=== PATIENT | male | born 1965 | race African-American/Black ===

== ENCOUNTER 2017-03-21 11:56 | Inpatient (IN) | payer OTHER ==
[2017-03-21 12:32] VITALS: BMI 20.7
--- NOTE | 2017-03-21 15:30 | HP ---
CIWA Score - CIWA Score Nausea/Vomitin-No Nausea/No Vomiting Muscle Tremors: 4-Moderate,w/Arms Extend Anxiety: 4-Mod. Anxious/Guarded Agitation: 4-Moderately Restless Paroxysmal Sweats: 3 Orientation: 0-Oriented Tacttile Disturbances: 0-None Auditory Disturbances: 0-None Visual Disturbances: 0-None Headache: 1-Very Mild CIWA-Ar Total Score: 16 Admission ROS BHS - HPI Chief Complaint: I am here to detox. Allergies/Adverse Reactions: Allergies Allergy/AdvReac Type Severity Reaction Status Date / Time Sulfa (Sulfonamide Allergy Severe Difficulty Verified 03/21/17 14:41 Antibiotics) Breathing History of Present Illness: pt is a 51yr old male with a history of alcohol and cocaine dependence seeking detox for treatment. Exam Limitations: Physical Impairment (right sided weakness due to stroke) - Ebola screening Have you traveled outside of the country in the last 21 days: No Have you had contact with anyone from an Ebola affected area: No Have you been sick,other than usual withdrawal symptoms: No Do you have a fever: No - Review of Systems Constitutional: Chills, Diaphoresis, Weakness (right sided weakness) EENT: reports: Nose Congestion, Other (right eye blindness) Respiratory: reports: Cough Cardiac: reports: No Symptoms Reported GI: reports: Indigestion : reports: Incontinence Musculoskeletal: reports: Muscle Pain Integumentary: reports: Rash (diaper rash) Neuro: reports: No Symptoms reported Endocrine: reports: No Symptoms Reported Hematology: reports: No Symptoms Reported Psychiatric: reports: Judgement Intact, Mood/Affect Appropiate, Agitated, Anxious Other Systems: Reviewed and Negative Patient History - Patient Medical History Hx Anemia: No Hx Asthma: No Hx Chronic Obstructive Pulmonary Disease (COPD): No Hx Cancer: No Hx Cardiac Disorders: No Hx Congestive Heart Failure: No Hx Hypertension: Yes (on meds.) Hx Hypercholesterolemia: Yes Hx Pacemaker: No HX Cerebrovascular Accident: Yes (12yrs ago right sided residual) Hx Seizures: No Hx Dementia: No Hx Diabetes: No Hx Gastrointestinal Disorders: No Hx Liver Disease: No Hx Genitourinary Disorders: No Hx Sexually Transmitted Disorders: Yes (tx for syphillis and gonnorhea) Hx Renal Disease (ESRD): No Hx Thyroid Disease: No Hx Human Immunodeficiency Virus (HIV): Yes (on medication but didnt bring them ) Hx Hepatitis C: No Hx Depression: Yes Hx Suicide Attempt: No Hx Bipolar Disorder: No Hx Schizophrenia: No Other Medical History: insomnia - Patient Surgical History Past Surgical History: No - PPD History Previous Implant?: Yes Documented Results: Positive w/o proof Implanted On Prior [facility] Admission?: No PPD to be Administered?: No - Reproductive History Patient : No - Smoking Cessation Smoking history: Current every day smoker Have you smoked in the past 12 months: Yes Aproximately how many cigarettes per day: 10 Hx Chewing Tobacco Use: No Initiated information on smoking cessation: Yes 'Breaking Loose' booklet given: 03/21/17 - Substance & Tx. History Hx Alcohol Use: Yes Hx Substance Use: Yes Substance Use Type: Alcohol, Cocaine Hx Substance Use Treatment: Yes - Substances Abused Alcohol Route: Oral Frequency: Daily Amount used: 3 22 oz beers Age of first use: 28 Date of Last Use: 03/21/17 Crack Route: Smoking Frequency: Daily Amount used: $30-40 Age of first use: 27 Date of Last Use: 03/14/17 Family Disease History - Family Disease History Family History: Denies Admission Physical Exam S - Vital Signs Vital Signs: Vital Signs - 24 hr 03/21/17 12:26 Temperature 95.9 F L Pulse Rate 94 H Respiratory 19 Rate Blood Pressure 128/68 - Physical General Appearance: Yes: Moderate Distress, Tremorous, Irritable, Sweating, Anxious HEENTM: Yes: Normal Voice Respiratory: Yes: Lungs Clear Neck: Yes: No masses,lesions,Nodules Breast: Yes: Within Normal Limits Cardiology: Yes: Regular Rhythm, Regular Rate, S1, S2 Abdominal: Yes: Normal Bowel Sounds, Non Tender Genitourinary: Yes: Within Normal Limits Back: Yes: Normal Inspection Musculoskeletal: Yes: full range of Motion Extremities: Yes: Normal Capillary Refill, Tremors Neurological: Yes: Fully Oriented, Normal Response Integumentary: Yes: Normal Color Lymphatic: Yes: Within Normal Limits - Diagnostic (1) Alcohol dependence with uncomplicated withdrawal Current Visit: Yes Status: Chronic (2) Nicotine dependence Current Visit: Yes Status: Chronic Qualifiers: Nicotine product type: cigarettes Substance use status: uncomplicated Qualified Code(s): F17.210 - Nicotine dependence, cigarettes, uncomplicated (3) CVA, old, hemiparesis Current Visit: No Status: Chronic (4) Blind right eye Current Visit: Yes Status: Chronic (5) Rash Current Visit: Yes Status: Chronic (6) HIV (human immunodeficiency virus infection) Current Visit: Yes Status: Chronic Comment: pt did not bring his antivirial medication (7) PPD positive, treated Current Visit: Yes Status: Inactive Cleared for Admission [facility] - Detox or Rehab [facility] Level of Care: Medically Managed Detox Regimen/Protocol: Librium [facility] Breath Alcohol Content Breath Alcohol Content: 0 Urine Drug Screen - Results Drug Screen Negative: No Urine Drug Screen Results: TCA-Tricyclic Antidepress
[2017-03-21] MEDS ORDERED: P-EPHED 60MG/TRIPROLIDI 2.5MG TABLET PO PRN (15:47)
[2017-03-21] MEDS ORDERED: MAGNESIUM HYDROX 2400MG/30ML ORAL SUSPENSION 30 ML CUP PO PRN (15:47)
[2017-03-21] MEDS ORDERED: MENTHOL/PHENOL 1 EACH UD MM PRN (15:47)
[2017-03-21] MEDS ORDERED: ACETAMINOPHEN 325 MG TABLET (FP) PO PRN (15:47)
[2017-03-21] MEDS ORDERED: hydrOXYzine PAMOATE 50 MG CAPSULE (FP) PO PRN (15:47)
[2017-03-21] MEDS ORDERED: chlordiazePOXIDE HCL 25 MG CAPSULE PO PRN (15:47)
[2017-03-21] MEDS ORDERED: LOPERAMIDE HCL 2 MG CAPSULE PO PRN (15:47)
[2017-03-21] MEDS ORDERED: MAG HYDROX/AL HYDROX/SIMETH 30 ML UNIT-DOSE CUP PO PRN (15:47)
[2017-03-21] MEDS ORDERED: IBUPROFEN 400 MG TABLET (FP) PO PRN (15:47)
[2017-03-21] MEDS ORDERED: MAGNESIUM CITRATE 300 ML BOTTLE PO PRN (15:47)
[2017-03-21] MEDS ORDERED: guaiFENesin/D-METHORPHAN HB 10 ML UNIT-DOSE CUPS PO PRN (15:47)
[2017-03-21] MEDS ORDERED: chlordiazePOXIDE HCL 25 MG CAPSULE PO ONE (17:00)
[2017-03-21] MEDS: chlordiazePOXIDE HCL 25 MG CAPSULE PO SCH ×2 (17:32→22:56)
[2017-03-21] MEDS: INSULIN SLIDING SCALE (NOVOLOG) 1 VIAL SQ SCH (21:47)
[2017-03-21] MEDS ORDERED: INSULIN (NOVOLOG) ASPART 100 UNITS/ML 10ML VIAL ONE (21:47)
[2017-03-21] MEDS: NYSTATIN 100,000 UNIT/GM TOPICAL CREAM 15 GM TUBE TP SCH (22:01)
[2017-03-21] MEDS: THIAMINE HCL 100 MG TABLET (FP) PO SCH (22:56)
[2017-03-21] MEDS: diphenhydrAMINE HCL 50 MG CAPSULE PO PRN (22:56)
[2017-03-21] MEDS: ATORVASTATIN CA 10 MG TABLET (FP) PO SCH (22:56)
[2017-03-21 23:03] LABS: URINE APPEARANCE CLEAR; URINE BILIRUBIN NEGATIVE (NEGATIVE); URINE BLOOD NEGATIVE (NEGATIVE); URINE COLOR STRAW; URINE GLUCOSE (UA) 3+ (NEGATIVE); URINE KETONE 1+ (NEGATIVE); URINE LEUK ESTERASE NEGATIVE (NEGATIVE); URINE NITRITE NEGATIVE (NEGATIVE); URINE PROTEIN NEGATIVE (NEGATIVE); URINE UROBILINOGEN NEGATIVE E.U./dl (0.2-1.0)
--- NOTE | 2017-03-21 23:27 | PN ---
BHS Progress Note Note: GLUCOMETER READ "HI"; 12 UNITS OF NOVOLOG ADMINISTERED. BS RECHECKED AFTER AN HOUR BUT IT WAS STILL "HI". CLIENT TRANSFERRED TO [facility] ER FOR FURTHER EVALUATION.
[2017-03-22] MEDS: NIFEdipine E.R. 90 MG TABLET (FP) PO SCH (10:40)
[2017-03-22] MEDS: PRENATAL VITAMINS W/ FOLIC ACID TABLET (FP) PO SCH (10:40)
[2017-03-22] MEDS: NYSTATIN 100,000 UNIT/GM TOPICAL CREAM 15 GM TUBE TP SCH ×2 (10:41→22:32)
[2017-03-22] MEDS: chlordiazePOXIDE HCL 25 MG CAPSULE PO SCH ×3 (10:41→22:12)
[2017-03-22] MEDS: NICOTINE 21 MG/24 HOURS TOPICAL PATCH TD SCH (10:41)
[2017-03-22] MEDS: INSULIN SLIDING SCALE (NOVOLOG) 1 VIAL SQ SCH ×4 (10:41→22:13)
--- NOTE | 2017-03-22 10:53 | CONSULT ---
[facility] Psychiatric Consult - Data Date of interview: 03/22/17 Admission source: [facility] Identifying data: First admission to [facility] for this 51 y/o AA male seeking detox treatment for alcohol and cocaine dependence.Patient is single,a father of two,domiciled,disabled (CVA in 2003) and supported on SSI benefits. Substance Abuse History: - Smoking Cessation. Smoking history: Current every day smoker. Have you smoked in the past 12 months: Yes. Aproximately how many cigarettes per day: 10. Hx Chewing Tobacco Use: No. Initiated information on smoking cessation: Yes. 'Breaking Loose' booklet given: 03/21/17. - Substance & Tx. History. Hx Alcohol Use: Yes. Hx Substance Use: Yes. Substance Use Type : Alcohol, Cocaine. Hx Substance Use Treatment: Yes. - Substances Abused. Alcohol. Route: Oral. Frequency: Daily. Amount used: 3 22 oz beers. Age of first use: 28. Date of Last Use: 03/21/17. Crack. Route: Smoking. Frequency: Daily. Amount used: $30-40. Age of first use: 27. Date of Last Use : 03/14/17. Confirmed by patient. Medical History: Remarkable for HIV infection,CVA with right hemiparesis + right eye blindness + urinary incontinence + decreased hearing in right ear, diabetes mellitus,positive PPD (treated),hypertension and past history of treatment for gonorrhea/syphilis. Psychiatric History: Patient admits to one psychiatric hospitalization,more than 20 years ago,at the [facility].Was diagnosed with MDD.Mr Durán indicates that he was treated,until recently,with wellbutrin and amitryptiline." I stop taking the wellbutrin because I felt that I was no longer depressed." History of one suicide attempt via overdose with ASA more than 20 years ago (reason for his psychiatric hospitalization).Patient gets his OPD care (psychiatric + medical) at the [facility] in the [place]. Physical/Sexual Abuse/Trauma History: Patient denies. Additional Comment: Urine Drug Screen Results: TCA-Tricyclic Antidepressant.Noted. Mental Status Exam - Mental Status Exam Alert and Oriented to: Time, Place, Person Cognitive Function: Good Patient Appearance: Unkempt, Disheveled Mood: Hopeful Affect: Mood Congruent Patient Behavior: Fatigued, Appropriate, Cooperative Speech Pattern: Clear Voice Loudness: Normal Thought Process: Goal Oriented Thought Disorder: Not Present Hallucinations: Denies Suicidal Ideation: Denies Homicidal Ideation: Denies Insight/Judgement: Poor Sleep: Poorly, Difficulty falling asleep (refuses to take elavil; requests ambien ) Appetite: Good Gait/Station: Other (wheelchair-bound) Psychiatric Findings - Problem List ([place] 1, 2,3) (1) Alcohol dependence with uncomplicated withdrawal Current Visit: Yes Status: Acute (2) Nicotine dependence Current Visit: Yes Status: Chronic Qualifiers: Nicotine product type: cigarettes Substance use status: uncomplicated Qualified Code(s): F17.210 - Nicotine dependence, cigarettes, uncomplicated (3) Blind right eye Current Visit: Yes Status: Chronic (4) HIV (human immunodeficiency virus infection) Current Visit: Yes Status: Chronic Comment: pt did not bring his antivirial medication (5) PPD positive, treated Current Visit: Yes Status: Inactive (6) Hyperglycemia Current Visit: Yes Status: Acute (7) CVA, old, hemiparesis Current Visit: No Status: Chronic (8) Insomnia Current Visit: Yes Status: Acute - Initial Treatment Plan Initial Treatment Plan: Psychoeducation.Detoxification is initiated.Medications : ambien 10 mg po hs.Patient made aware of potential for parasomnias.He is agreement with this plan of care.Nursing care.Fall precautions.Observation.
--- NOTE | 2017-03-22 11:35 | PN ---
[facility] CIWA - CIWA Score Nausea/Vomitin-No Nausea/No Vomiting Muscle Tremors: 3 Anxiety: 5 Agitation: 3 Paroxysmal Sweats: 1-Minimal Palms Moist Orientation: 0-Oriented Tacttile Disturbances: 3-Moderate Itch/Numb/Burn Auditory Disturbances: 0-None Visual Disturbances: 0-None Headache: 0-None Present CIWA-Ar Total Score: 15 BHS Progress Note (SOAP) Subjective: PT WAS RECIEVED WHILE IN BED EATING BREAKFAST. RETURNED EARLIER IN [facility] FOR ELEVATED BLOOD SUGAR LEVEL. ALERT O X 3. PT ON INTERVIEW TODAY STATES " THREE YEARS AGO I WAS URINATING TOO MUCH, EVEN ACCIDENTS ON MY BED. MY FAMILY TOOK ME TO THE EMERGENCY ROOM AND MY BLOOD SUGAR WAS VERY HIGH. THEY GAVE ME INSULIN AND ALSO METFORMIN". APPARENTLY PT WAS NONCOMPLIANT WITH HIS TREATMENT AND PT DID NOT INDICATE YESTERDAY ON ADMISSION HIS FULL MEDICAL HX. Objective: 03/22/17 11:36 Vital Signs Temperature 96.0 F L 03/22/17 10:30 Pulse Rate 76 03/22/17 10:30 Respiratory Rate 18 03/22/17 10:30 Blood Pressure 117/62 03/22/17 10:30 O2 Sat by Pulse Oximetry (%) Laboratory Last Values WBC Cancelled 03/22/17 06:00 Corrected WBC (auto) Cancelled 03/22/17 06:00 RBC Cancelled 03/22/17 06:00 Hgb Cancelled 03/22/17 06:00 Hct Cancelled 03/22/17 06:00 MCV Cancelled 03/22/17 06:00 MCHC Cancelled 03/22/17 06:00 RDW Cancelled 03/22/17 06:00 Plt Count Cancelled 03/22/17 06:00 MPV Cancelled 03/22/17 06:00 Differential Comment Cancelled 03/22/17 06:00 Platelet Estimate Cancelled 03/22/17 06:00 Platelet Comment Cancelled 03/22/17 06:00 Platelet Comment Cancelled 03/22/17 06:00 RBC Morphology Cancelled 03/22/17 06:00 Sodium Cancelled 03/22/17 06:00 Potassium Cancelled 03/22/17 06:00 Chloride Cancelled 03/22/17 06:00 Carbon Dioxide Cancelled 03/22/17 06:00 Anion Gap Cancelled 03/22/17 06:00 BUN Cancelled 03/22/17 06:00 Creatinine Cancelled 03/22/17 06:00 Creat Clearance w eGFR Cancelled 03/22/17 06:00 Plasma Glucose Cancelled 03/21/17 22:55 POC Glucometer > 600 UNITS (()) 03/21/17 22:48 Random Glucose 1221 mg/dL (74-106) H* 03/21/17 22:55 Calcium Cancelled 03/22/17 06:00 Total Bilirubin Cancelled 03/22/17 06:00 AST Cancelled 03/22/17 06:00 ALT Cancelled 03/22/17 06:00 Alkaline Phosphatase Cancelled 03/22/17 06:00 Total Protein Cancelled 03/22/17 06:00 Albumin Cancelled 03/22/17 06:00 Urine Color Straw 03/21/17 22:55 Urine Appearance Clear 03/21/17 22:55 Urine pH 6.0 (5.0-8.0) 03/21/17 22:55 Ur Specific [place] <= 1.005 (1.001-1.035) 03/21/17 22:55 Urine Protein Negative (NEGATIVE) 03/21/17 22:55 Urine Glucose (UA) 3+ (NEGATIVE) H 03/21/17 22:55 Urine Ketones 1+ (NEGATIVE) H 03/21/17 22:55 Urine Blood Negative (NEGATIVE) 03/21/17 22:55 Urine Nitrite Negative (NEGATIVE) 03/21/17 22:55 Urine Bilirubin Negative (NEGATIVE) 03/21/17 22:55 Urine Urobilinogen Negative E.U./dl (0.2-1.0) 03/21/17 22:55 Ur Leukocyte Esterase Negative (NEGATIVE) 03/21/17 22:55 K+=2.9(DONE WHILE AT THE ER LAST NIGHT) LABS NOTED. Assessment: 03/22/17 11:36 WITHDRAWAL SX UNCONTROLLED TYPE 2 DM HYPOKALEMIA Plan: CONTINUE DETOX ASSIST PT WITH ADLs NEEDED CONTINUE WITH INSULIN SLIDING SCALE QID(ACHS) KDUR 20 MEQ PO BID CBC, CMP, RPR IN AM
[2017-03-22] MEDS ORDERED: INSULIN (NOVOLOG) ASPART 100 UNITS/ML 10ML VIAL ONE ×2 (11:43→17:00)
--- NOTE | 2017-03-22 11:45 | EKG ---
Test Reason : Blood Pressure : / mmHG Vent. Rate : 076 BPM Atrial Rate : 076 BPM P-R Int : 154 ms QRS Dur : 112 ms QT Int : 422 ms P-R-T Axes : 066 064 071 degrees QTc Int : 474 ms NORMAL SINUS RHYTHM NON-SPECIFIC INTRA-VENTRICULAR CONDUCTION DELAY NO PREVIOUS ECGS AVAILABLE Confirmed by SONIDO KNAPP MD ([id number]) on 03/22/2017 11:44:42 AM Referred By: Confirmed By:SONIDO KNAPP MD
[2017-03-22] MEDS ORDERED: POTASSIUM CHLORIDE TABS 20 MEQ TABLET.ER (FP) PO ONE (12:23)
[2017-03-22] MEDS ORDERED: INSULIN (NOVOLOG) ASPART 100 UNITS/ML 10ML VIAL SQ ONE (21:41)
--- NOTE | 2017-03-22 21:54 | PN ---
[facility] Progress Note Note: INFORMED BY RN PT BGM "HI" S/P HOSPITAL RETURN EARLIER TODAY FOR TXMENT OF HYPERGLYCEMIA WILL GIVE NOVOLOG 12 UNITS NOW AND MONITOR. DOCUMENTATION NOTED PT NOW REPORTS H/O DM WITH INSULIN AND ORAL MEDICATION FOR TXMENT IN THE PAST. POOR HISTORIAN HE DOES NOT RECALL MUCH OF HIS DM HX. ALSO NON COMPLAINT WITH DIET. WILL START LEVEMIR 10 MG SQ QHS AND MONITOR DIETARY CONSULT
[2017-03-22] MEDS ORDERED: ZOLPIDEM TARTRATE 10 MG TABLET (PARK CARE ONLY) PO PRN (22:00)
[2017-03-22] MEDS: ATORVASTATIN CA 10 MG TABLET (FP) PO SCH (22:12)
[2017-03-22] MEDS: POTASSIUM CHLORIDE TABS 20 MEQ TABLET.ER (FP) PO SCH (22:12)
[2017-03-22] MEDS: THIAMINE HCL 100 MG TABLET (FP) PO SCH (22:12)
[2017-03-22] MEDS: INSULIN DETEMIR 100 UNITS/ML MDV SQ SCH (22:12)
[2017-03-23] MEDS: chlordiazePOXIDE HCL 25 MG CAPSULE PO SCH ×2 (06:17→11:42)
[2017-03-23] MEDS ORDERED: INSULIN (NOVOLOG) ASPART 100 UNITS/ML 10ML VIAL ONE ×4 (07:04→21:39)
[2017-03-23] MEDS: INSULIN SLIDING SCALE (NOVOLOG) 1 VIAL SQ SCH ×4 (07:06→22:21)
[2017-03-23 10:05] LABS: MCHC 34.1 g/dl (32.0-35.9); MEAN PLT VOLUME 10.3 fl (7.5-11.1); PLATELET COUNT 134 K/MM3 (134-434); RDW 12.7 % (11.9-15.9); WHITE BLOOD COUNT 3.6 K/mm3 (4.0-10.0)
[2017-03-23] MEDS: PRENATAL VITAMINS W/ FOLIC ACID TABLET (FP) PO SCH (10:40)
[2017-03-23] MEDS: POTASSIUM CHLORIDE TABS 20 MEQ TABLET.ER (FP) PO SCH ×2 (10:41→22:21)
[2017-03-23] MEDS: NIFEdipine E.R. 90 MG TABLET (FP) PO SCH (10:41)
[2017-03-23] MEDS: NICOTINE 21 MG/24 HOURS TOPICAL PATCH TD SCH (10:41)
[2017-03-23] MEDS: NYSTATIN 100,000 UNIT/GM TOPICAL CREAM 15 GM TUBE TP SCH ×2 (10:41→22:22)
[2017-03-23 10:42] LABS: ALBUMIN 3.2 g/dl (3.4-5.0); ALK PHOS 61 U/L (45-117); ANION GAP 11 (8-16); BILIRUBIN,TOTAL 0.5 mg/dL (0.2-1.0); CALCIUM 9.2 mg/dL (8.5-10.1); CO2 25 mmol/L (21-32); COCKROFT - GAULT 109.61; CREATININE 0.7 mg/dL (0.7-1.3); SGOT/AST 14 U/L (15-37); SGPT/ALT 20 U/L (12-78); TOT PROT 6.5 g/dl (6.4-8.2)
[2017-03-23 11:56] LABS: GLUCOSE,RANDOM 305 mg/dL (74-106)
--- NOTE | 2017-03-23 15:07 | PN ---
S CIWA - CIWA Score Nausea/Vomitin Muscle Tremors: 4-Moderate,w/Arms Extend Anxiety: 2 Agitation: 2 Paroxysmal Sweats: 4-Forehead w/Sweat Beads Orientation: 0-Oriented Tacttile Disturbances: 3-Moderate Itch/Numb/Burn Auditory Disturbances: 0-None Visual Disturbances: 1-Very Mild Sensitivity Headache: 0-None Present CIWA-Ar Total Score: 19 BHS Progress Note (SOAP) Subjective: Sweating, Anxious, Tremors, Interrupted Sleep. Objective: PT. A & O X 3, OBSERVED MOVING ABOUT UNIT IN WHEELCHAIR. 03/23/17 15:01 Vital Signs Temperature 96.3 F L 03/23/17 10:51 Pulse Rate 79 03/23/17 10:51 Respiratory Rate 20 03/23/17 10:51 Blood Pressure 107/62 03/23/17 10:51 O2 Sat by Pulse Oximetry (%) Laboratory Last Values WBC 3.6 K/mm3 (4.0-10.0) L D 03/23/17 07:20 Corrected WBC (auto) Cancelled 03/22/17 06:00 RBC 4.14 M/mm3 (4.00-5.60) 03/23/17 07:20 Hgb 12.0 GM/dL (11.7-16.9) 03/23/17 07:20 Hct 35.2 % (35.4-49) L 03/23/17 07:20 MCV 85.0 fl (80-96) 03/23/17 07:20 MCHC 34.1 g/dl (32.0-35.9) 03/23/17 07:20 RDW 12.7 % (11.9-15.9) 03/23/17 07:20 Plt Count 134 K/MM3 (134-434) 03/23/17 07:20 MPV 10.3 fl (7.5-11.1) 03/23/17 07:20 Differential Comment Cancelled 03/22/17 06:00 Platelet Estimate Cancelled 03/22/17 06:00 Platelet Comment Cancelled 03/22/17 06:00 Platelet Comment Cancelled 03/22/17 06:00 RBC Morphology Cancelled 03/22/17 06:00 Sodium 138 mmol/L (136-145) 03/23/17 07:20 Potassium 3.4 mmol/L (3.5-5.1) L 03/23/17 07:20 Chloride 102 mmol/L (98-107) 03/23/17 07:20 Carbon Dioxide 25 mmol/L (21-32) 03/23/17 07:20 Anion Gap 11 (8-16) 03/23/17 07:20 BUN 9 mg/dL (7-18) 03/23/17 07:20 Creatinine 0.7 mg/dL (0.7-1.3) D 03/23/17 07:20 Creat Clearance w eGFR > 60 (>60) 03/23/17 07:20 Plasma Glucose Cancelled 03/21/17 22:55 POC Glucometer 300 UNITS (()) 03/23/17 06:20 Random Glucose 305 mg/dL (74-106) H* D 03/23/17 07:20 Hemoglobin A1c % 15.5 % (4.8-6.0) H 03/23/17 08:00 Calcium 9.2 mg/dL (8.5-10.1) 03/23/17 07:20 Total Bilirubin 0.5 mg/dL (0.2-1.0) 03/23/17 07:20 AST 14 U/L (15-37) L 03/23/17 07:20 ALT 20 U/L (12-78) 03/23/17 07:20 Alkaline Phosphatase 61 U/L (45-117) 03/23/17 07:20 Total Protein 6.5 g/dl (6.4-8.2) 03/23/17 07:20 Albumin 3.2 g/dl (3.4-5.0) L 03/23/17 07:20 Urine Color Straw 03/21/17 22:55 Urine Appearance Clear 03/21/17 22:55 Urine pH 6.0 (5.0-8.0) 03/21/17 22:55 Ur Specific [place] <= 1.005 (1.001-1.035) 03/21/17 22:55 Urine Protein Negative (NEGATIVE) 03/21/17 22:55 Urine Glucose (UA) 3+ (NEGATIVE) H 03/21/17 22:55 Urine Ketones 1+ (NEGATIVE) H 03/21/17 22:55 Urine Blood Negative (NEGATIVE) 03/21/17 22:55 Urine Nitrite Negative (NEGATIVE) 03/21/17 22:55 Urine Bilirubin Negative (NEGATIVE) 03/21/17 22:55 Urine Urobilinogen Negative E.U./dl (0.2-1.0) 03/21/17 22:55 Ur Leukocyte Esterase Negative (NEGATIVE) 03/21/17 22:55 RPR Titer Nonreactive (NONREACTIVE) 03/23/17 07:20 LABS NOTED. Assessment: 03/23/17 15:08 WITHDRAWAL SYMPTOMS. Plan: CONTINUE DETOX. ADVISED PATIENT TO FOLLOW-UP WITH [facility] / REHAB MEDICAL PROVIDER AFTER DISCHARGE FROM DETOX FOR GENERAL MEDICAL ASSESSMENT, FOR ABNORMAL LAB VALUES, AND FOR HISTORY OF DIABETES MELLITUS.
--- NOTE | 2017-03-23 15:19 | PN ---
[facility] Progress Note Note: Core Placer patient camr upon patient, who fell in his room and was lying on floor near his bed. Pt. denies any LOC, He also denies awareness of any injury, pain, or bleeding. Pt. A & O X 3. VS STABLE: BP: 112/67; P: 84: O2: 97 % ; RR: 18; T: 96.4. Pt. assisted back in to wheelchair and advised to request assistance from Nursing staff when getting into and out of wheelchair / bed and when going to the bathroom going forward. Pt. verbalized understanding of recommendations. [facility] FALL PRECAUTIONS # 2 IMPLEMENTED. John MAGALLANES NP
[2017-03-23] MEDS: chlordiazePOXIDE 5 MG CAPSULE PO SCH ×2 (17:12→22:21)
[2017-03-23] MEDS: THIAMINE HCL 100 MG TABLET (FP) PO SCH (22:21)
[2017-03-23] MEDS: ATORVASTATIN CA 10 MG TABLET (FP) PO SCH (22:21)
[2017-03-23] MEDS: INSULIN DETEMIR 100 UNITS/ML MDV SQ SCH (22:22)
[2017-03-23] MEDS: diphenhydrAMINE HCL 50 MG CAPSULE PO PRN (22:22)
[2017-03-24] MEDS: chlordiazePOXIDE 5 MG CAPSULE PO SCH ×2 (05:57→10:35)
[2017-03-24] MEDS ORDERED: INSULIN (NOVOLOG) ASPART 100 UNITS/ML 10ML VIAL ONE ×4 (05:59→21:27)
[2017-03-24] MEDS: INSULIN SLIDING SCALE (NOVOLOG) 1 VIAL SQ SCH ×4 (07:32→21:34)
[2017-03-24] MEDS: NIFEdipine E.R. 90 MG TABLET (FP) PO SCH (10:33)
[2017-03-24] MEDS: POTASSIUM CHLORIDE TABS 20 MEQ TABLET.ER (FP) PO SCH ×2 (10:33→22:24)
[2017-03-24] MEDS: PRENATAL VITAMINS W/ FOLIC ACID TABLET (FP) PO SCH (10:33)
[2017-03-24] MEDS: NYSTATIN 100,000 UNIT/GM TOPICAL CREAM 15 GM TUBE TP SCH ×2 (10:33→22:26)
[2017-03-24] MEDS: NICOTINE 21 MG/24 HOURS TOPICAL PATCH TD SCH (10:35)
--- NOTE | 2017-03-24 13:34 | PN ---
S Progress Note (SOAP) Subjective: Nausea, anxious, irritable, interrupted sleep Objective: 03/24/17 13:29 Last Vital Signs Temp Pulse Resp BP Pulse Ox 97.0 F L 84 18 109/63 03/24/17 13:11 03/24/17 13:11 03/24/17 13:11 03/24/17 13:11 Laboratory Tests 03/21/17 03/21/17 03/21/17 21:15 21:18 22:45 WBC Corrected WBC (auto) RBC Hgb Hct MCV MCHC RDW Plt Count MPV Differential Comment Platelet Estimate Platelet Comment RBC Morphology Sodium Potassium Chloride Carbon Dioxide Anion Gap BUN Creatinine Creat Clearance w eGFR Plasma Glucose POC Glucometer > 600 > 600 > 600 Random Glucose Hemoglobin A1c % Calcium Total Bilirubin AST ALT Alkaline Phosphatase Total Protein Albumin Urine Color Urine Appearance Urine pH Ur Specific [place] Urine Protein Urine Glucose (UA) Urine Ketones Urine Blood Urine Nitrite Urine Bilirubin Urine Urobilinogen Ur Leukocyte Esterase RPR Titer 03/21/17 03/21/17 03/21/17 22:48 22:55 22:55 WBC Corrected WBC (auto) RBC Hgb Hct MCV MCHC RDW Plt Count MPV Differential Comment Platelet Estimate Platelet Comment RBC Morphology Sodium Potassium Chloride Carbon Dioxide Anion Gap BUN Creatinine Creat Clearance w eGFR Plasma Glucose Cancelled POC Glucometer > 600 Random Glucose 1221 H* Hemoglobin A1c % Calcium Total Bilirubin AST ALT Alkaline Phosphatase Total Protein Albumin Urine Color Straw Urine Appearance Clear Urine pH 6.0 Ur Specific [place] <= 1.005 Urine Protein Negative Urine Glucose (UA) 3+ H Urine Ketones 1+ H Urine Blood Negative Urine Nitrite Negative Urine Bilirubin Negative Urine Urobilinogen Negative Ur Leukocyte Esterase Negative RPR Titer 03/22/17 03/22/17 03/22/17 06:00 06:00 06:00 WBC Cancelled Corrected WBC (auto) Cancelled RBC Cancelled Hgb Cancelled Hct Cancelled MCV Cancelled MCHC Cancelled RDW Cancelled Plt Count Cancelled MPV Cancelled Differential Comment Cancelled Platelet Estimate Cancelled Platelet Comment Cancelled RBC Morphology Cancelled Sodium Cancelled Potassium Cancelled Chloride Cancelled Carbon Dioxide Cancelled Anion Gap Cancelled BUN Cancelled Creatinine Cancelled Creat Clearance w eGFR Cancelled Plasma Glucose POC Glucometer Random Glucose Cancelled Hemoglobin A1c % Calcium Cancelled Total Bilirubin Cancelled AST Cancelled ALT Cancelled Alkaline Phosphatase Cancelled Total Protein Cancelled Albumin Cancelled Urine Color Urine Appearance Urine pH Ur Specific [place] Urine Protein Urine Glucose (UA) Urine Ketones Urine Blood Urine Nitrite Urine Bilirubin Urine Urobilinogen Ur Leukocyte Esterase RPR Titer Nonreactive 03/23/17 03/23/17 03/23/17 00:26 06:20 07:20 WBC 3.6 L D Corrected WBC (auto) RBC 4.14 Hgb 12.0 Hct 35.2 L MCV 85.0 MCHC 34.1 RDW 12.7 Plt Count 134 MPV 10.3 Differential Comment Platelet Estimate Platelet Comment RBC Morphology Sodium Potassium Chloride Carbon Dioxide Anion Gap BUN Creatinine Creat Clearance w eGFR Plasma Glucose POC Glucometer 546 300 Random Glucose Hemoglobin A1c % Calcium Total Bilirubin AST ALT Alkaline Phosphatase Total Protein Albumin Urine Color Urine Appearance Urine pH Ur Specific [place] Urine Protein Urine Glucose (UA) Urine Ketones Urine Blood Urine Nitrite Urine Bilirubin Urine Urobilinogen Ur Leukocyte Esterase RPR Titer 03/23/17 03/23/17 03/23/17 07:20 07:20 08:00 WBC Corrected WBC (auto) RBC Hgb Hct MCV MCHC RDW Plt Count MPV Differential Comment Platelet Estimate Platelet Comment RBC Morphology Sodium 138 Potassium 3.4 L Chloride 102 Carbon Dioxide 25 Anion Gap 11 BUN 9 Creatinine 0.7 D Creat Clearance w eGFR > 60 Plasma Glucose POC Glucometer Random Glucose 305 H* D Hemoglobin A1c % 15.5 H Calcium 9.2 Total Bilirubin 0.5 AST 14 L ALT 20 Alkaline Phosphatase 61 Total Protein 6.5 Albumin 3.2 L Urine Color Urine Appearance Urine pH Ur Specific [place] Urine Protein Urine Glucose (UA) Urine Ketones Urine Blood Urine Nitrite Urine Bilirubin Urine Urobilinogen Ur Leukocyte Esterase RPR Titer Nonreactive 03/24/17 03/24/17 05:54 11:20 WBC Corrected WBC (auto) RBC Hgb Hct MCV MCHC RDW Plt Count MPV Differential Comment Platelet Estimate Platelet Comment RBC Morphology Sodium Potassium Chloride Carbon Dioxide Anion Gap BUN Creatinine Creat Clearance w eGFR Plasma Glucose POC Glucometer 381 589 Random Glucose Hemoglobin A1c % Calcium Total Bilirubin AST ALT Alkaline Phosphatase Total Protein Albumin Urine Color Urine Appearance Urine pH Ur Specific [place] Urine Protein Urine Glucose (UA) Urine Ketones Urine Blood Urine Nitrite Urine Bilirubin Urine Urobilinogen Ur Leukocyte Esterase RPR Titer Labs noted: UA 3+ glucose, FS glucose 589, A1c 15.5%, K 3.4 Assessment: 03/24/17 13:32 Withdrawal symptoms Noted with glycosuria and hyperglycemia secondary to uncontrolled DMT2; noted with mild hypokalemia Plan: Continue detox Glycosuria and hyperglycemia secondary to uncontrolled DMT2: increase levemir to 30 units sq qhs, start metformin 500mg PO BID, encouraged diabetic diet ( discouraged sugary beverages and encouraged to drink more water), continue insulin humalog sliding scale coverage, repeat BMP in AM, continue to monitor, follow up with PCP post discharge for monitoring/management Hypokalemia: asymptomatic, continue K DUR replacement
[2017-03-24] MEDS: metFORMIN HCL 500 MG TABLET (FP) PO SCH (16:54)
[2017-03-24] MEDS: chlordiazePOXIDE HCL 10 MG CAPSULE PO SCH ×2 (17:33→22:23)
[2017-03-24] MEDS: INSULIN DETEMIR 100 UNITS/ML MDV SQ SCH (21:35)
[2017-03-24] MEDS: THIAMINE HCL 100 MG TABLET (FP) PO SCH (22:23)
[2017-03-24] MEDS: ATORVASTATIN CA 10 MG TABLET (FP) PO SCH (22:24)
[2017-03-25] MEDS: chlordiazePOXIDE HCL 10 MG CAPSULE PO SCH ×2 (06:00→10:25)
[2017-03-25] MEDS ORDERED: INSULIN (NOVOLOG) ASPART 100 UNITS/ML 10ML VIAL ONE ×4 (06:29→21:09)
[2017-03-25] MEDS: INSULIN SLIDING SCALE (NOVOLOG) 1 VIAL SQ SCH ×4 (06:30→22:17)
[2017-03-25] MEDS: metFORMIN HCL 500 MG TABLET (FP) PO SCH ×2 (06:31→16:54)
[2017-03-25] MEDS ORDERED: sitaGLIPtin PHOSPHATE 50 MG TABLET PO ONE (09:17)
--- NOTE | 2017-03-25 09:22 | PN ---
[facility] Progress Note (SOAP) Subjective: Pt. claims he was on Januvia & metformin.We'll resume Januvia and monitor bgm Objective: 03/25/17 09:20 Vital Signs - 8 hr 03/25/17 03/25/17 03/25/17 03:30 06:24 09:20 Temperature 96 F L 96.3 F L Pulse Rate 75 88 Respiratory 18 16 18 Rate Blood Pressure 108/58 121/75 Laboratory Last Values WBC 3.6 K/mm3 (4.0-10.0) L D 03/23/17 07:20 Corrected WBC (auto) Cancelled 03/22/17 06:00 RBC 4.14 M/mm3 (4.00-5.60) 03/23/17 07:20 Hgb 12.0 GM/dL (11.7-16.9) 03/23/17 07:20 Hct 35.2 % (35.4-49) L 03/23/17 07:20 MCV 85.0 fl (80-96) 03/23/17 07:20 MCHC 34.1 g/dl (32.0-35.9) 03/23/17 07:20 RDW 12.7 % (11.9-15.9) 03/23/17 07:20 Plt Count 134 K/MM3 (134-434) 03/23/17 07:20 MPV 10.3 fl (7.5-11.1) 03/23/17 07:20 Differential Comment Cancelled 03/22/17 06:00 Platelet Estimate Cancelled 03/22/17 06:00 Platelet Comment Cancelled 03/22/17 06:00 Platelet Comment Cancelled 03/22/17 06:00 RBC Morphology Cancelled 03/22/17 06:00 Sodium 138 mmol/L (136-145) 03/23/17 07:20 Potassium 3.4 mmol/L (3.5-5.1) L 03/23/17 07:20 Chloride 102 mmol/L (98-107) 03/23/17 07:20 Carbon Dioxide 25 mmol/L (21-32) 03/23/17 07:20 Anion Gap 11 (8-16) 03/23/17 07:20 BUN 9 mg/dL (7-18) 03/23/17 07:20 Creatinine 0.7 mg/dL (0.7-1.3) D 03/23/17 07:20 Creat Clearance w eGFR > 60 (>60) 03/23/17 07:20 Plasma Glucose Cancelled 03/21/17 22:55 POC Glucometer 354 UNITS (()) 03/25/17 06:24 Random Glucose 305 mg/dL (74-106) H* D 03/23/17 07:20 Hemoglobin A1c % 15.5 % (4.8-6.0) H 03/23/17 08:00 Calcium 9.2 mg/dL (8.5-10.1) 03/23/17 07:20 Total Bilirubin 0.5 mg/dL (0.2-1.0) 03/23/17 07:20 AST 14 U/L (15-37) L 03/23/17 07:20 ALT 20 U/L (12-78) 03/23/17 07:20 Alkaline Phosphatase 61 U/L (45-117) 03/23/17 07:20 Total Protein 6.5 g/dl (6.4-8.2) 03/23/17 07:20 Albumin 3.2 g/dl (3.4-5.0) L 03/23/17 07:20 Urine Color Straw 03/21/17 22:55 Urine Appearance Clear 03/21/17 22:55 Urine pH 6.0 (5.0-8.0) 03/21/17 22:55 Ur Specific [place] <= 1.005 (1.001-1.035) 03/21/17 22:55 Urine Protein Negative (NEGATIVE) 03/21/17 22:55 Urine Glucose (UA) 3+ (NEGATIVE) H 03/21/17 22:55 Urine Ketones 1+ (NEGATIVE) H 03/21/17 22:55 Urine Blood Negative (NEGATIVE) 03/21/17 22:55 Urine Nitrite Negative (NEGATIVE) 03/21/17 22:55 Urine Bilirubin Negative (NEGATIVE) 03/21/17 22:55 Urine Urobilinogen Negative E.U./dl (0.2-1.0) 03/21/17 22:55 Ur Leukocyte Esterase Negative (NEGATIVE) 03/21/17 22:55 RPR Titer Nonreactive (NONREACTIVE) 03/23/17 07:20 labs noted Assessment: 05/08/17 09:21 Withdrawal sx. Plan: Continue detox
[2017-03-25 10:19] LABS: COCKROFT - GAULT 85.25; CREATININE 0.9 mg/dL (0.7-1.3)
[2017-03-25] MEDS: POTASSIUM CHLORIDE TABS 20 MEQ TABLET.ER (FP) PO SCH ×2 (10:21→22:13)
[2017-03-25] MEDS: NIFEdipine E.R. 90 MG TABLET (FP) PO SCH (10:21)
[2017-03-25] MEDS: PRENATAL VITAMINS W/ FOLIC ACID TABLET (FP) PO SCH (10:21)
[2017-03-25] MEDS: NICOTINE 21 MG/24 HOURS TOPICAL PATCH TD SCH (10:22)
[2017-03-25] MEDS: NYSTATIN 100,000 UNIT/GM TOPICAL CREAM 15 GM TUBE TP SCH ×2 (10:23→22:13)
[2017-03-25] MEDS: ATORVASTATIN CA 10 MG TABLET (FP) PO SCH (22:13)
[2017-03-25] MEDS: THIAMINE HCL 100 MG TABLET (FP) PO SCH (22:13)
[2017-03-25] MEDS: diphenhydrAMINE HCL 50 MG CAPSULE PO PRN (22:13)
[2017-03-25] MEDS: INSULIN DETEMIR 100 UNITS/ML MDV SQ SCH (22:18)
[2017-03-26] MEDS: metFORMIN HCL 500 MG TABLET (FP) PO SCH (06:13)
[2017-03-26] MEDS: INSULIN SLIDING SCALE (NOVOLOG) 1 VIAL SQ SCH (06:13)
[2017-03-26] MEDS ORDERED: INSULIN (NOVOLOG) ASPART 100 UNITS/ML 10ML VIAL ONE (06:17)
[2017-03-26] MEDS ORDERED: sitaGLIPtin PHOSPHATE 50 MG TABLET PO SCH (07:00)
--- NOTE | 2017-03-26 09:00 | DS ---
[facility] Detox Discharge Summary Admission Date: 03/21/17 Discharge Date: 03/26/17 - History Present History: Alcohol Dependence Pertinent Past History: S/P CVA with right hemiparesis HIV infection - Physical Exam Results Vital Signs: Vital Signs Temperature 97.7 F 03/26/17 06:38 Pulse Rate 86 03/26/17 06:38 Respiratory Rate 16 03/26/17 06:38 Blood Pressure 123/71 03/26/17 06:38 O2 Sat by Pulse Oximetry (%) Pertinent Admission Physical Exam Findings: Withdrawal sx Laboratory Last Values WBC 3.6 K/mm3 (4.0-10.0) L D 03/23/17 07:20 Corrected WBC (auto) Cancelled 03/22/17 06:00 RBC 4.14 M/mm3 (4.00-5.60) 03/23/17 07:20 Hgb 12.0 GM/dL (11.7-16.9) 03/23/17 07:20 Hct 35.2 % (35.4-49) L 03/23/17 07:20 MCV 85.0 fl (80-96) 03/23/17 07:20 MCHC 34.1 g/dl (32.0-35.9) 03/23/17 07:20 RDW 12.7 % (11.9-15.9) 03/23/17 07:20 Plt Count 134 K/MM3 (134-434) 03/23/17 07:20 MPV 10.3 fl (7.5-11.1) 03/23/17 07:20 Differential Comment Cancelled 03/22/17 06:00 Platelet Estimate Cancelled 03/22/17 06:00 Platelet Comment Cancelled 03/22/17 06:00 Platelet Comment Cancelled 03/22/17 06:00 RBC Morphology Cancelled 03/22/17 06:00 Sodium 136 mmol/L (136-145) 03/25/17 07:00 Potassium 4.1 mmol/L (3.5-5.1) D 03/25/17 07:00 Chloride 99 mmol/L (98-107) 03/25/17 07:00 Carbon Dioxide 28 mmol/L (21-32) 03/25/17 07:00 Anion Gap 9 (8-16) 03/25/17 07:00 BUN 14 mg/dL (7-18) D 03/25/17 07:00 Creatinine 0.9 mg/dL (0.7-1.3) D 03/25/17 07:00 Creat Clearance w eGFR > 60 (>60) 03/23/17 07:20 Plasma Glucose Cancelled 03/21/17 22:55 POC Glucometer 431 UNITS (()) 03/26/17 06:09 Random Glucose 373 mg/dL (74-106) H* D 03/25/17 07:00 Hemoglobin A1c % 15.5 % (4.8-6.0) H 03/23/17 08:00 Calcium 9.0 mg/dL (8.5-10.1) 03/25/17 07:00 Total Bilirubin 0.5 mg/dL (0.2-1.0) 03/23/17 07:20 AST 14 U/L (15-37) L 03/23/17 07:20 ALT 20 U/L (12-78) 03/23/17 07:20 Alkaline Phosphatase 61 U/L (45-117) 03/23/17 07:20 Total Protein 6.5 g/dl (6.4-8.2) 03/23/17 07:20 Albumin 3.2 g/dl (3.4-5.0) L 03/23/17 07:20 Urine Color Straw 03/21/17 22:55 Urine Appearance Clear 03/21/17 22:55 Urine pH 6.0 (5.0-8.0) 03/21/17 22:55 Ur Specific [place] <= 1.005 (1.001-1.035) 03/21/17 22:55 Urine Protein Negative (NEGATIVE) 03/21/17 22:55 Urine Glucose (UA) 3+ (NEGATIVE) H 03/21/17 22:55 Urine Ketones 1+ (NEGATIVE) H 03/21/17 22:55 Urine Blood Negative (NEGATIVE) 03/21/17 22:55 Urine Nitrite Negative (NEGATIVE) 03/21/17 22:55 Urine Bilirubin Negative (NEGATIVE) 03/21/17 22:55 Urine Urobilinogen Negative E.U./dl (0.2-1.0) 03/21/17 22:55 Ur Leukocyte Esterase Negative (NEGATIVE) 03/21/17 22:55 RPR Titer Nonreactive (NONREACTIVE) 03/23/17 07:20 labs noted - Treatment Hospital Course: Detox Protocol Followed, Detoxed Safely, Responded well, Discharged Condition Good, Rehab Referral Accepted Patient has Accepted a Rehab Referral to: [facility] for IOP - Medication Discharge Medications: Ambulatory Orders Amitriptyline HCl [Elavil -] 100 mg PO HS 03/21/17 Atazanavir [Reyataz -] 300 mg PO DAILY@0800 03/21/17 Atorvastatin Ca [Lipitor] 0 mg PO HS 03/21/17 Emtricitabine/Tenofovir [Truvada] 1 tab PO DAILY 03/21/17 Nifedipine ER [Procardia Xl -] 90 mg PO DAILY 03/21/17 Ritonavir [Norvir -] 100 mg PO DAILY 03/21/17 Zolpidem Tartrate [Ambien] 10 mg PO HS 03/21/17 - Diagnosis (1) Alcohol dependence with uncomplicated withdrawal Current Visit: Yes Status: Acute (2) Insomnia Current Visit: Yes Status: Acute (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
[2017-03-26] MEDS: NIFEdipine E.R. 90 MG TABLET (FP) PO SCH (09:28)
[2017-03-26] MEDS: POTASSIUM CHLORIDE TABS 20 MEQ TABLET.ER (FP) PO SCH (09:28)
[2017-03-26] MEDS: PRENATAL VITAMINS W/ FOLIC ACID TABLET (FP) PO SCH (09:29)
[2017-03-26] MEDS: NICOTINE 21 MG/24 HOURS TOPICAL PATCH TD SCH (09:29)
[2017-03-26 09:47] VITALS: BP 133/82; PULSE 94; TEMP 96.6
== END 2017-03-26 09:46 | disposition home or self-care (01) | DRG 861 ==
LOC: YASAS 11:56 → Y3N 15:37
PROVIDERS: ADMIT Internal Medicine; ATTEND Internal Medicine
PROC: HZ2ZZZZ Detoxification Services for Substance Abuse Treatment (ICD-10-PCS; principal; 2017-03-26)
DX: F17.210 Nicotine dependence, cigarettes, uncomplicated (principal); G47.00 Insomnia, unspecified; E11.65 Type 2 diabetes mellitus with hyperglycemia; E78.00 Pure hypercholesterolemia, unspecified; H54.41 Blindness, right eye, normal vision left eye; H91.8X1 Other specified hearing loss, right ear; R76.11 Nonspecific reaction to tuberculin skin test without active tuberculosis; I69.851 Hemiplegia and hemiparesis following other cerebrovascular disease affecting right dominant side
CPT/HCPCS: 36415; 71010-TC; 80048; 80053; 81003; 82947; 83036; 85027; 86593; 93005; 93010

== ENCOUNTER 2017-03-22 00:01 | Emergency (ER) | payer OTHER ==
[2017-03-22 00:24] VITALS: BMI 20.7
[2017-03-22] MEDS ORDERED: SODIUM CHLORIDE 1,000 ML IV STA (00:34)
--- NOTE | 2017-03-22 00:35 | PDOC ---
History of Present Illness - General History Source: Patient Exam Limitations: No Limitations - History of Present Illness Initial Comments: 03/22/17 00:44 The patient is a 51 year old male with significant past medical history of etoh abuse, substance use (cocaine), HIV, hypertension, hyperlipidemia and diabetes who presents to the ED BIBA from [facility] for elevated blood sugar. Patient reports going to [facility] about 2 hours ago seeking detox for etoh and cocaine use. Admits that his last cocaine use was yesterday and states he had 2 16oz of beer yesterday. While he was in the detox center, a finger stick was done at bedside, which was elevated. Patient was given 12 units of insulin at the detox center as well as 1L of fluids that is currently in progress. At time of evaluation, patient has no complaints. The patient denies fever, chills, cough, SOB, chest pain, and palpitations. The patient denies abdominal pain, nausea, vomiting, and diarrhea. Allergies: sulfa Social History: No alcohol, tobacco, or drug use reported. Past Surgical History: none reported PCP: none reported <Azra Harry - Last Filed: 03/22/17 03:30> - General History Source: Patient <Moise Nunes - Last Filed: 03/22/17 06:04> - General Chief Complaint: Blood Sugar Problem Stated Complaint: HYPERGLYCEMIA Time Seen by Provider: 03/22/17 00:18 Past History <Azra Harry - Last Filed: 03/22/17 03:30> - Past Medical History Anemia: No Asthma: No Cancer: No Cardiac Disorders: No CVA: Yes (12yrs ago right sided residual) COPD: No CHF: No Dementia: No Diabetes: No GI Disorders: No Disorders: No HTN: Yes (on meds.) Hypercholesterolemia: Yes Kidney Stones: No Liver Disease: No Suicide Attempt (Hx): No Seizures: No Thyroid Disease: No - Psycho/Social/Smoking Cessation Hx Anxiety: No Suicidal Ideation: No Smoking History: Unknown if ever smoked Have you smoked in the past 12 months: No Number of Cigarettes Smoked Daily: 10 Information on smoking cessation initiated: No 'Breaking Loose' booklet given: 03/21/17 Hx Alcohol Use: Yes Drug/Substance Use Hx: Yes Substance Use Type: Alcohol, Cocaine Hx Substance Use Treatment: Yes <Moise Nunes - Last Filed: 03/22/17 06:04> - Past Medical History Allergies/Adverse Reactions: Allergies Allergy/AdvReac Type Severity Reaction Status Date / Time Sulfa (Sulfonamide Allergy Severe Difficulty Verified 03/22/17 00:21 Antibiotics) Breathing Home Medications: Ambulatory Orders Amitriptyline HCl [Elavil -] 100 mg PO HS 03/21/17 Atazanavir [Reyataz -] 300 mg PO DAILY@0800 03/21/17 Atorvastatin Ca [Lipitor] 0 mg PO HS 03/21/17 Emtricitabine/Tenofovir [Truvada] 1 tab PO DAILY 03/21/17 Nifedipine ER [Procardia Xl -] 90 mg PO DAILY 03/21/17 Ritonavir [Norvir -] 100 mg PO DAILY 03/21/17 Zolpidem Tartrate [Ambien] 10 mg PO HS 03/21/17 Review of Systems - Review of Systems Able to Perform ROS?: Yes Comments:: 03/22/17 00:44 CONSTITUTIONAL: Absent: fever, no chills, no fatigue EYES: Absent: visual changes ENT: Absent: ear pain, no sore throat CARDIOVASCULAR: Absent: chest pain, no palpitations RESPIRATORY: Absent: cough, no SOB GI: Absent: abdominal pain, no nausea, no vomiting, no constipation, no diarrhea GENITOURINARY: Absent: dysuria, no frequency, no hematuria MUSCULOSKELETAL: Absent: back pain, no arthralgia, no myalgia SKIN: Absent: rash ENDOCRINE: +elevated blood sugar NEURO: Absent: headache <Azra Harry - Last Filed: 03/22/17 03:30> *Physical Exam - Vital Signs Last Vital Signs Temp Pulse Resp BP Pulse Ox 68 14 133/74 99 03/22/17 00:22 03/22/17 00:22 03/22/17 00:22 03/22/17 00:22 - Physical Exam Comments: 03/22/17 00:44 GENERAL: Well-appearing, well-nourished. No apparent distress. HEENT: Normocephalic, atraumatic. PERRL, EOM intact. CARDIOVASCULAR: Normal S1, S2. Regular rate and rhythm. PULMONARY: Clear to auscultation bilaterally. ABDOMEN: Soft, non-distended, non-tender. EXTREMITIES: Normal ROM in all four extremities. No gross deformities. SKIN: Warm, dry. No rash NEUROLOGICAL: No focal neurological deficits. <Azra Harry - Last Filed: 03/22/17 03:30> - Vital Signs Last Vital Signs Temp Pulse Resp BP Pulse Ox 68 14 133/74 99 03/22/17 00:22 03/22/17 00:22 03/22/17 00:22 03/22/17 00:22 <Moise Nunes - Last Filed: 03/22/17 06:04> Heart Score/ECG Review - ECG Impressions Comment:: 03/22/17 03:30 NSR @68bpm Voltage criteria for L ventricular hypertrophy Nonspecific ST and T wave abnormality Abnormal ECG <Azra Harry - Last Filed: 03/22/17 03:30> ED Treatment Course - LABORATORY CBC & Chemistry Diagram: 03/22/17 00:50 03/22/17 00:50 <Azra Harry - Last Filed: 03/22/17 03:30> - LABORATORY CBC & Chemistry Diagram: 03/22/17 00:50 03/22/17 04:15 <Moise Nunes - Last Filed: 03/22/17 06:04> Medical Decision Making - Medical Decision Making 03/22/17 06:03 Dr. Nunes: The scribe's documentation has been prepared under my direction and personally reviewed by me in its entirery. I confirm that the note above accurately reflects all work, treatment, procedures, and medical decision making performed by me. Pt glucose is now 193. Pt will return to [facility] to continue detox <Moise Nunes - Last Filed: 03/22/17 06:04> *DC/Admit/Observation/Transfer - Attestations Scribe Attestion: 03/22/17 00:44 Documentation prepared by Azra Harry, acting as medical scheduler for Moise Nunes MD/. <Azra Harry - Last Filed: 03/22/17 03:30> - Discharge Dispostion Admit: No <Moise Nunes - Last Filed: 03/22/17 06:04> Diagnosis at time of Disposition: Hyperglycemia - Discharge Dispostion Disposition: I.P. ALCOHOL/SUBS ABUSE REHAB Condition at time of disposition: Stable - Patient Instructions Printed Discharge Instructions: DI for Hyperglycemia -- Adult
[2017-03-22 01:02] LABS: BASOPHIL 0.5 % (0-2.0); EOSINOPHIL 0.5 % (0-4.5); MCH 28.9 pg (25.7-33.7); MCHC 33.5 g/dl (32.0-35.9); MEAN CELL VOLUME 86.2 fl (80-96); MEAN PLT VOLUME 9.9 fl (7.5-11.1); NEUTROPHILS 48.2 % (42.8-82.8); PLATELET COUNT 152 K/MM3 (134-434); RDW 12.3 % (11.9-15.9)
[2017-03-22 01:18] LABS: URINE APPEARANCE CLEAR; URINE BILIRUBIN NEGATIVE (NEGATIVE); URINE BLOOD NEGATIVE (NEGATIVE); URINE COLOR COLORLESS; URINE GLUCOSE (UA) 3+ (NEGATIVE); URINE KETONE NEGATIVE (NEGATIVE); URINE LEUK ESTERASE NEGATIVE (NEGATIVE); URINE NITRITE NEGATIVE (NEGATIVE); URINE PROTEIN NEGATIVE (NEGATIVE); URINE UROBILINOGEN NEGATIVE E.U./dl (0.2-1.0)
[2017-03-22 01:28] LABS: URINE MARIJUANA THC NEGATIVE ng/ml (CUTOFF=50)
[2017-03-22 01:35] LABS: ALBUMIN 3.5 g/dl (3.4-5.0); CALCIUM 9.4 mg/dL (8.5-10.1); COCKROFT - GAULT 61.13; CREATININE 1.3 mg/dL (0.7-1.3)
[2017-03-22 01:37] LABS: BILIRUBIN,TOTAL 0.5 mg/dL (0.2-1.0); TOT PROT 7.2 g/dl (6.4-8.2)
[2017-03-22 01:39] LABS: TROPONIN I < 0.02 ng/ml (0.00-0.05)
[2017-03-22 01:40] LABS: MAGNESIUM 2.3 mg/dL (1.8-2.4)
[2017-03-22 01:42] LABS: ACETONE SERUM NEGATIVE (NEGATIVE); INR 0.99 (0.82-1.09); PROTHROMBIN TIME (PATIENT) 10.9 SEC (9.98-11.88)
[2017-03-22] MEDS ORDERED: INSULIN REGULAR HUMAN 100 UNITS/ML *VIAL IVPUSH ONE ×2 (01:44→03:32)
[2017-03-22] MEDS ORDERED: INSULIN REGULAR HUMAN 100 UNITS/ML *VIAL ONE ×2 (02:08→03:42)
[2017-03-22 05:38] VITALS: TEMP 97.9
[2017-03-22 05:51] LABS: GLUCOSE,RANDOM 193 mg/dL (74-106)
[2017-03-22 07:10] LABS: ALBUMIN 3.3 g/dl (3.4-5.0); ALK PHOS 64 U/L (45-117); ANION GAP 8 (8-16); BILIRUBIN,TOTAL 0.5 mg/dL (0.2-1.0); CALCIUM 8.9 mg/dL (8.5-10.1); CO2 31 mmol/L (21-32); CREATININE 0.9 mg/dL (0.7-1.3); GLUCOSE,RANDOM 64 mg/dL (74-106); SGOT/AST 14 U/L (15-37); SGPT/ALT 22 U/L (12-78); TOT PROT 6.8 g/dl (6.4-8.2)
[2017-03-22] MEDS ORDERED: POTASSIUM CHLORIDE TABS 20 MEQ TABLET.ER (FP) PO ONE ×2 (07:35)
[2017-03-22 09:08] VITALS: BP 135/75; PULSE 67
--- NOTE | 2017-03-22 10:22 | EKG ---
Test Reason : Blood Pressure : / mmHG Vent. Rate : 068 BPM Atrial Rate : 068 BPM P-R Int : 166 ms QRS Dur : 104 ms QT Int : 414 ms P-R-T Axes : 056 044 072 degrees QTc Int : 440 ms POOR DATA QUALITY, INTERPRETATION MAY BE ADVERSELY AFFECTED NORMAL SINUS RHYTHM VOLTAGE CRITERIA FOR LEFT VENTRICULAR HYPERTROPHY NONSPECIFIC ST AND T WAVE ABNORMALITY ABNORMAL ECG Confirmed by SONIDO KNAPP MD ([id number]) on 03/22/2017 10:22:10 AM Referred By: Confirmed By:SONIDO KNAPP MD
== END 2017-03-22 07:45 | disposition home or self-care (01) ==
LOC: JER 00:01
PROC: 3E033VG Introduction of Insulin into Peripheral Vein, Percutaneous Approach (ICD-10-PCS; principal; 2017-03-22)
PROC: 3E0337Z Introduction of Electrolytic and Water Balance Substance into Peripheral Vein, Percutaneous Approach (ICD-10-PCS; 2017-03-22)
DX: F19.10 Other psychoactive substance abuse, uncomplicated (principal); F10.99 Alcohol use, unspecified with unspecified alcohol-induced disorder; Z21 Asymptomatic human immunodeficiency virus [HIV] infection status; I10 Essential (primary) hypertension; E78.5 Hyperlipidemia, unspecified; Z87.891 Personal history of nicotine dependence; E11.65 Type 2 diabetes mellitus with hyperglycemia; Z79.4 Long term (current) use of insulin
CPT/HCPCS: 36415; 71010-TC; 80053; 80307; 81003; 82009; 82550; 83690; 83735; 84484; 85025; 85610; 93005; 93010; 96361; 96374; 96376; 99285-25